=== PATIENT | female | born 1970 | race Caucasian/White ===

== ENCOUNTER → 2016-09-15 | Day surgery (SDC) | payer BC, OTHER ==
--- NOTE | 2016-09-16 12:21 | PATH ---
Surgical Pathology Report Patient Name: PRETTY ESTRADA [facility]. Rec. #: [id number] /Age/Gender: 1970 (Age: 45) / F Account: [id number] Location: [facility] Taken: 09/15/2016 Received: 09/15/2016 Reported: 09/16/2016 Physicians: Easton Gallo M.D. Specimen(s) Received A: RIGHT BREAST SPECIMEN WITH CALCIFICATIONS B: RIGHT BREAST SPECIMEN WITHOUT CALCIFICATIONS Clinical History Nonpalpable lesion Mammographic findings: microcalcification, suspicious Final Diagnosis A. BREAST, RIGHT, WITH CALCIFICATIONS, STEREOTACTIC BIOPSY: BENIGN BREAST TISSUE SHOWING STROMAL FIBROSIS AND FEW CALCIFICATIONS IN ASSOCIATION WITH BENIGN GLANDULAR PARENCHYMA. B. BREAST, RIGHT, WITHOUT CALCIFICATIONS, STEREOTACTIC BIOPSY: BENIGN BREAST TISSUE SHOWING STROMAL FIBROSIS AND CYST FORMATION WITH APOCRINE METAPLASIA AND CALCIFICATIONS IN ASSOCIATION WITH CYST CONTENTS. Electronically Signed Kae Swann M.D. Gross Description A. Received in formalin, labeled "right breast with calcifications," are 2 olivas-yellow, cylindrical portions of fibroadipose tissue measuring 1.5 cm in length and 0.3 cm in diameter. Entirely submitted in one cassette. B. Received in formalin, labeled "right breast without calcifications," are 10 olivas-yellow, cylindrical portions of fibroadipose tissue ranging from 1.2-1.6 cm in length with a diameter of up to 0.3 cm. Entirely submitted in 2 cassettes. Time to formalin fixation: 5 minutes Total formalin fixation time: Approximately 8 hours. 09/15/201609/15/2016
== END | disposition home or self-care (01) ==
LOC: FMAMMOTONE 09:01
PROVIDERS: ATTEND Surgery Surgical Oncology
PROC: 0HBT3ZX Excision of Right Breast, Percutaneous Approach, Diagnostic (ICD-10-PCS; principal; 2016-09-15)
DX: N60.31 Fibrosclerosis of right breast (principal); N64.89 Other specified disorders of breast; R92.1 Mammographic calcification found on diagnostic imaging of breast
CPT/HCPCS: 19081; 87899; 88305-TC; A4648